=== PATIENT | male | born 1975 | race Two or more races ===

== ENCOUNTER 2016-09-18 17:12 | Emergency (ER) | payer SELFPAY ==
[~2016-09-18] VITALS: Ht 180.3 cm; Wt 83.9 kg
[2016-09-18 17:24] VITALS: BP 135/75
== END 2016-09-18 18:59 | disposition left against medical advice (07) ==
LOC: ER 17:19
DX: M79.641 Pain in right hand (principal); Z53.21 Procedure and treatment not carried out due to patient leaving prior to being seen by health care provider
CPT/HCPCS: 93005